=== PATIENT | female | born 1990 | race Caucasian/White ===

== ENCOUNTER 2019-08-25 | Emergency (ER) | payer SELFPAY ==
[~2019-08-25] MED LIST: AMOXICILLIN500 MG OR; AUGMENTIN500TAB PO; BACTRIM DS1 TAB PO; NO HOME MEDS; PYRIDIUM200 MG PO; ULTRAM50 M1 PO; ZOFRAN4 MG/TAB PO; [UNRECOGNIZED DRUG - OTHER] RE
[2019-08-25] MEDS ORDERED: TESSALON PER100 MG PO (17:03)
[2019-08-25] MEDS ORDERED: MEDDOSEPAK PO (17:03)
== END 2019-08-25 17:13 | disposition home or self-care (01) | DRG 866 ==
DX: B34.9 Viral infection, unspecified (principal)